=== PATIENT | male | born 1955 | race Caucasian/White ===

== ENCOUNTER 2018-04-13 07:05 | Day surgery (SDC) | payer OTHER ==
[~2018-04-13] VITALS: Ht 193 cm; Wt 111.1 kg
[~2018-04-13 07:05] MED LIST: ADVIL100 MG PO; ALFU10 PO; ASPI81CH PO; COLLAGEN ULTRA PO; LIPOIC ACID25 GM PO; LYCOPENE10 MG PO; MAGNESIUM PO; Omeprazole20 M1 PO; SILD25T PO; [UNRECOGNIZED DRUG - OTHER] PO; [UNRECOGNIZED DRUG - OTHER] PO; [UNRECOGNIZED DRUG - OTHER] PO; [UNRECOGNIZED DRUG - OTHER] PO; [UNRECOGNIZED DRUG - OTHER] PO
== END 2018-04-13 22:50 | disposition home or self-care (01) ==
LOC: ORSCMMR 07:05 → ORD 08:30 → ORSCMMR 22:50
PROVIDERS: Surgery
PROC: 06BY0ZC Excision of Hemorrhoidal Plexus, Open Approach (ICD-10-PCS; principal; 2018-04-13 08:30)
DX: K64.4 Residual hemorrhoidal skin tags (principal); Z87.891 Personal history of nicotine dependence
CPT/HCPCS: J1100; J1885; J2001; J2250; J2405; J3010; J7120

== ENCOUNTER 2021-01-19 07:13 | Day surgery (SDC) | payer OTHER ==
[~2021-01-19] VITALS: Ht 193 cm; Wt 106.6 kg
[~2021-01-19 07:13] MED LIST changes: +ABIRATERONE AC500 MG PO; +Calcium Ascorb500 MG PO; +ERGO400 PO; +IBUP800 PO; +LYRICA75 MG PO; +MYRBETRIQ25 MG PO; +ONDA4 PO; +OXAYDO5 M1 PO; +RAYOS2 MG PO; +XARELTO20 MG PO; -[UNRECOGNIZED DRUG - OTHER] PO
--- NOTE | 2021-01-19 07:33 | NUR ---
Ambulatory in Day Surgery. History, Chart, Medications and Allergies reviewed before start of procedure. Patient States Post-Procedure ride home has been arranged, VAMSHI ASENCIO
[2021-01-19 13:03] LABS: Performing Lab SYMBIODX; Test Name LYMPH NODE
[2021-01-24 11:58] LABS: Result SEE SEPERATE REPORT
[2021-01-29 10:05] LABS: Performing Lab SYMBIODX; Test Name TISSUE BLOCK
== END 2021-01-19 22:42 | disposition home or self-care (01) ==
LOC: ORSCMMR 07:13 → ORD 08:30 → ORSCMMR 22:42
PROVIDERS: Surgery
PROC: 07B20ZX Excision of Left Neck Lymphatic, Open Approach, Diagnostic (ICD-10-PCS; principal; 2021-01-19 08:30)
DX: C61 Malignant neoplasm of prostate (principal); C79.82 Secondary malignant neoplasm of genital organs; R59.0 Localized enlarged lymph nodes; Z86.718 Personal history of other venous thrombosis and embolism; Z85.038 Personal history of other malignant neoplasm of large intestine; Z79.01 Long term (current) use of anticoagulants; Z79.899 Other long term (current) drug therapy; Z87.891 Personal history of nicotine dependence
CPT/HCPCS: 87070; 87075; 87205; 88184; 88185; 88305; 88341; 88342; 88360; J0690; J1100; J1885; J2250; J2405; J2704; J3010; J7120

== ENCOUNTER 2021-02-20 07:32 | Day surgery (SDC) | payer OTHER ==
[2021-02-19 07:37] LABS: Source, Urine Clean Catch
[2021-02-19 08:05] LABS: Appearance, Urine Hazy (Clear); Bilirubin, Urine Neg (Neg); Blood, Urine 5+ (Neg); Color, Urine Brown (P-Yellow); Glucose Qualitative, Urine Neg (Neg); Ketones, Urine 1+ (Neg); Leukocyte Esterase, Urine 1+ (Neg); Nitrite, Urine Neg (Neg); Protein, Urine 3+ (Neg); Urobilinogen, Urine 1+ (Normal)
[2021-02-19 08:06] LABS: BASOPHILS ABSOLUTE AUTO 0.05 K/mm3 (0.00-0.23); BASOPHILS PERCENT AUTO 1 % (0-2); EOSINOPHILS ABSOLUTE AUTO 0.19 K/mm3 (0.00-0.68); EOSINOPHILS PERCENT AUTO 2 % (0-6); Hemoglobin 7.7 g/dL (13.5-17.5); IMMATURE GRAN ABSOLUTE AUTO 0.21 K/mm3 (0.00-0.10); IMMATURE GRAN PERCENT AUTO 2 % (0-1); LYMPHOCYTES ABSOLUTE AUTO 1.68 K/mm3 (0.84-5.20); LYMPHOCYTES PERCENT AUTO 19 % (21-46); MONOCYTES ABSOLUTE AUTO 0.59 K/mm3 (0.16-1.47); MONOCYTES PERCENT AUTO 7 % (4-13); Mean Corpuscular HGB 24.1 pg (26.0-34.0); Mean Corpuscular HGB Conc 29.6 g/dL (31.5-36.5); Mean Corpuscular Volume 81 fL (80-100); Mean Platelet Volume 9.5 fL (9.1-12.4); NEUTROPHILS ABSOLUTE AUTO 6.03 K/mm3 (1.96-9.15); NEUTROPHILS PERCENT AUTO 69 % (41-73); Platelet Count 519 K/mm3 (150-400); RDW Coefficient Variation 16.2 % (11.7-14.2); RDW Standard Deviation 47.8 fL (35.1-46.3); White Blood Cell Count 8.75 K/mm3 (4.00-11.30)
[2021-02-19 08:27] LABS: Alanine Aminotransfer (ALT/SGP 9 U/L (12-78); Albumin, Blood 2.7 g/dL (3.4-5.0); Albumin/Globulin Ratio 0.5 (0.8-1.8); Alk Phos 136 U/L (50-136); Anion Gap 6 mmol/L (6-16); Aspartate Aminotrans (AST/SGOT 15 U/L (12-37); Bilirubin, Total 0.3 mg/dL (0.1-1.0); Blood Urea Nitrogen 20 mg/dL (8-24); Bun/Creatinine Ratio 14.3 (12.0-20.0); CO2, Blood 25 mmol/L (21-32); Calcium, Blood 8.6 mg/dL (8.5-10.1); Chloride, Blood 103 mmol/L (98-108); Glomerular Filtration Rate 54 (60-); Glucose, Blood 108 mg/dL (70-99); Potassium, Blood 4.4 mmol/L (3.5-5.5); Sodium, Blood 134 mmol/L (136-145); Total Protein, Blood 7.7 g/dL (6.4-8.2)
[2021-02-19 08:50] LABS: Bacteria Few /hpf; Red Blood Cells, Urine TNTC /hpf (0-2); Squamous Epithelial Cells Rare /hpf (Few)
[2021-02-19 12:51] LABS: Ferritin, Serum 757 ng/mL (26-388); Iron Serum 36 ug/dL (65-175); Percent Saturation 17.4 % (20.0-50.0); Total Iron Binding Capacity 207 ug/dL (250-450)
[2021-02-20] MEDS ORDERED: PRED5 PO (14:05)
[2021-02-20] MEDS ORDERED: TRAZ50 PO (14:05)
[2021-02-20] MEDS ORDERED: Rapaflo4 MG PO (14:08)
[2021-02-20] MEDS ORDERED: DDAVP0.1 M1 PO (14:10)
== END 2021-02-20 17:15 | disposition home or self-care (01) ==
LOC: ATC 07:32 → EDSTATUS 13:30 → ATC 17:15
PROVIDERS: Internal Medicine Hematology & Oncology
DX: C61 Malignant neoplasm of prostate (principal); C79.51 Secondary malignant neoplasm of bone; C77.5 Secondary and unspecified malignant neoplasm of intrapelvic lymph nodes; C77.2 Secondary and unspecified malignant neoplasm of intra-abdominal lymph nodes; M06.9 Rheumatoid arthritis, unspecified; Z87.891 Personal history of nicotine dependence; Z88.6 Allergy status to analgesic agent; Z92.21 Personal history of antineoplastic chemotherapy; Z92.3 Personal history of irradiation; Z85.038 Personal history of other malignant neoplasm of large intestine; Z87.440 Personal history of urinary (tract) infections; Z79.52 Long term (current) use of systemic steroids
CPT/HCPCS: 36415; 36430; 80053; 81001; 82728; 83540; 83550; 84153; 85025; 86850; 86900; 86901; 86920; 87086; J7050; P9016

== ENCOUNTER 2021-05-01 04:15 | Day surgery (SDC) | payer OTHER ==
[~2021-05-01 04:15] MED LIST changes: +DDAVP0.1 M1 PO; +PRED5 PO; +Rapaflo4 MG PO; +TRAZ50 PO
[2021-05-01 13:04] LABS: Hematocrit 25.3 % (37.0-53.0); Hemoglobin 7.5 g/dL (13.5-17.5); Mean Corpuscular HGB 25.7 pg (26.0-34.0); Mean Corpuscular HGB Conc 29.6 g/dL (31.5-36.5); Mean Corpuscular Volume 87 fL (80-100); Mean Platelet Volume 10.1 fL (9.1-12.4); Platelet Count 340 K/mm3 (150-400); RDW Coefficient Variation 17.9 % (11.7-14.2); RDW Standard Deviation 56.2 fL (35.1-46.3); Red Blood Cell Count 2.92 M/mm3 (4.30-5.90); White Blood Cell Count 9.09 K/mm3 (4.00-11.30)
== END 2021-05-01 12:38 | disposition home or self-care (01) ==
LOC: ATC 04:15
PROVIDERS: Family Medicine
DX: D64.9 Anemia, unspecified (principal); M19.90 Unspecified osteoarthritis, unspecified site; N40.0 Benign prostatic hyperplasia without lower urinary tract symptoms; Z87.891 Personal history of nicotine dependence; Z88.8 Allergy status to other drugs, medicaments and biological substances
CPT/HCPCS: 36415; 36430; 85027; 86850; 86900; 86901; 86923; J7050; P9016

== ENCOUNTER 2021-05-18 01:03 | Day surgery (SDC) | payer OTHER | END 2021-05-18 22:44 | disposition home or self-care (01) | LOC: ATC 01:03 → EDSTATUS 14:00 → ATC 22:44 | DX: C61 Malignant neoplasm of prostate (principal); C79.9 Secondary malignant neoplasm of unspecified site; Z88.4 Allergy status to anesthetic agent; N40.0 Benign prostatic hyperplasia without lower urinary tract symptoms; Z87.891 Personal history of nicotine dependence; Z88.8 Allergy status to other drugs, medicaments and biological substances | CPT/HCPCS: 36415; 86850; 86900; 86901; 86923; J7050; P9016 ==

== ENCOUNTER 2021-05-23 08:52 | Observation (INO) | payer OTHER ==
[~2021-05-23] VITALS: Ht 193 cm; Wt 83.5 kg
[2021-05-23 09:07] LABS: BASOPHILS ABSOLUTE AUTO 0.03 K/mm3 (0.00-0.23); BASOPHILS PERCENT AUTO 0 % (0-2); EOSINOPHILS ABSOLUTE AUTO 0.04 K/mm3 (0.00-0.68); EOSINOPHILS PERCENT AUTO 0 % (0-6); Hematocrit 25.5 % (37.0-53.0); Hemoglobin 7.9 g/dL (13.5-17.5); IMMATURE GRAN ABSOLUTE AUTO 0.34 K/mm3 (0.00-0.10); IMMATURE GRAN PERCENT AUTO 3 % (0-1); LYMPHOCYTES ABSOLUTE AUTO 0.73 K/mm3 (0.84-5.20); LYMPHOCYTES PERCENT AUTO 5 % (21-46); MONOCYTES ABSOLUTE AUTO 0.82 K/mm3 (0.16-1.47); MONOCYTES PERCENT AUTO 6 % (4-13); Mean Corpuscular HGB 26.1 pg (26.0-34.0); Mean Corpuscular Volume 84 fL (80-100); Mean Platelet Volume 9.9 fL (9.1-12.4); NEUTROPHILS ABSOLUTE AUTO 11.66 K/mm3 (1.96-9.15); NEUTROPHILS PERCENT AUTO 86 % (41-73); Platelet Count 291 K/mm3 (150-400); RDW Coefficient Variation 17.2 % (11.7-14.2); RDW Standard Deviation 52.8 fL (35.1-46.3); Red Blood Cell Count 3.03 M/mm3 (4.30-5.90); White Blood Cell Count 13.62 K/mm3 (4.00-11.30)
[2021-05-23 09:31] LABS: Albumin, Blood 2.7 g/dL (3.4-5.0); Albumin/Globulin Ratio 0.6 (0.8-1.8); Bilirubin, Total 0.3 mg/dL (0.1-1.0); Bun/Creatinine Ratio 28.3 (12.0-20.0); Calcium, Blood 7.9 mg/dL (8.5-10.1); Creatinine, Blood 3.85 mg/dL (0.60-1.20); Globulin, Blood 4.6 g/dL (2.2-4.0); Potassium, Blood 5.4 mmol/L (3.5-5.5); Total Protein, Blood 7.3 g/dL (6.4-8.2)
--- NOTE | 2021-05-23 10:25 | NUR ---
PAL CARE - Initial visit note - Met with pt, who was in and out of somnolence and his , Megan at bedside. Pt has PMH of metastatic prostate CA first dx in [address]. [address] Ag/oncology to request hospice this am after 2-3 weeks of N/V progressive weakness at home and realization that she needed help with care. Pt is also currently in acute renal failure per ER DR. I reviewed concerns with renal function and options with pt and . He could participate in the conversation intermittently. Pt and are clear that pt desires DNR status. He would like to be at home for his EOL care and seems to understand that he is nearing EOL at this time. Option of admission for getting N/V and pain under control and attempting gentle rehydradion discussed with pt and Megan and this is what they would like to do. Other than gentle rehydration they do not want other medical intervention outside of standard comfort care orders, which I reviewed with them. Pt would very much like to go home tomorrow with hospice support for him and his . They will need a hospital bed, overbed table and BSC set up in the home. They live in [facility] and do not have an agency preference. I recommend same day Hospoice admit due to increased S/S and 's support/ED needs. I contacted [facility], who cannot admit until Friday. Will call two other agencies serving [place] to check for availability. and pt are aware that his condition may deteriorate while here despite attempt at rehydration and s/s management. I left for admitting Dr to report on my visit and spoke to VALUE ADVISOR and about all of above after visit.
--- NOTE | 2021-05-23 11:11 | NUR ---
Local hospice agency, [facility], has an opening for admit tomorrow and can set DME up in home as long as they receive hospice orders JOSE. This was relayed to pt's ER nurse and she will pass on to that agency is available on for admit to hospice/same day of d/c from hosp.
[2021-05-23] MEDS ORDERED: MORP30ER (11:28)
[2021-05-23] MEDS ORDERED: MORP30ER PO (11:28)
[2021-05-23] MEDS ORDERED: Ritalin10 MG PO (11:36)
[2021-05-23] MEDS ORDERED: SPIRONOLACTONE50 MG PO (11:36)
[2021-05-23] MEDS ORDERED: REMERON15 M4 PO (11:36)
[2021-05-23] MEDS ORDERED: MS CONTIN PO (11:37)
[2021-05-23] MEDS ORDERED: OXYC5 PO (11:38)
[2021-05-23] MEDS ORDERED: MOVANTIK PO (11:38)
[2021-05-23] MEDS ORDERED: PREGABALIN PO (11:39)
[2021-05-23] MEDS ORDERED: TRAZ100 PO (11:39)
[2021-05-23] MEDS ORDERED: IBU800 M1 PO (11:40)
[2021-05-23] MEDS ORDERED: BUME2 PO (11:41)
[2021-05-23] MEDS ORDERED: TAMSULOSIN HCL0.4 M1 PO (11:41)
[2021-05-23] MEDS ORDERED: SENOKOT8.6 MG PO (11:41)
--- NOTE | 2021-05-23 12:13 | NUR ---
CASE CONF NOTE - Spoke with admitting provider & CM to report on my visit. [facility] hospice was faxed pt's face sheet and referral note. CM will f/u on obtaining orders to fax to them also. I confirmed that fax was received by [facility] and they will be in contact with pt's for set up of hospital bed and other DME as indicated. Spoke with Paint Preparer to request a visit to and pt later today.
--- NOTE | 2021-05-23 14:12 | NUR ---
Upon receiving a referral from Palliative Care RN Maria A Barclay, I visit patient in the ER. Patient is completely asleep and snoring loudly. I talk with patient's spouse, Megan who is very tearful and also pleasant with a deep inner strength. She explains that her strength and peace comes from her Yazdanism cyrus. She tells me the story of patient's rice with cancer and how recent weeks have been overwhelming. I normalize her experience, reinforce helpful attitudes and practices and provide therapeuitc listening and prayer. Megan responds well to the calming presence and prayer and shows signs of reduced stress. I will continue to remain available to patient and family to assist with spiritual/emotional needs.
--- NOTE | 2021-05-23 14:17 | NUR ---
PT ARRIVED TO THE MEDICAL FLOOR FROM THEN ER VIA GURNEY. PT IS ALERT SLOW TO RESPOND APPEARS TO BE DROWSY, IS AT THE BEDSIDE. PT AND FAMILY ORIENTED TO THE ROOM LAYOUT AND CALL SYSTEM. CALL LIGHT IN REACH
--- NOTE | 2021-05-23 15:38 | NUR ---
PAL CARE COMFORT CARE VISIT TO RM 301 upon transfer to medical floor. Pt remains drowsy and falls asleep easily mid sentence. RN in process of admitting to the floor. verbalized concerns for pt's weeks long constipation. VO obtained for bowel care and fleets enema prn if bowel medications are ineffective before d/c home with hospice planned tomorrow. Case conferenced with admitting [facility] again and CM dept to update on plan of care. Pt appears more restful than my earlier visit in ER and I do not see the nonverbal indicators of nausea and distress noted this am. [facility] food/beverage cart ordered for and other family visitors. Plan PC visit in am and coordination with N[facility] for smooth transition to home with hospice.
--- NOTE | 2021-05-23 17:36 | NUR ---
PT ARRIVED TO THE MEDICAL FLOOR APPEARS TO BE COMFORTABLE, DROWSY, IS AT THE BEDSIDE
--- NOTE | 2021-05-23 17:38 | NUR ---
PT IS ALERT OPENS EYES WITH VERBAL STIMULI. THE PT HAS BEEN VERY DROWSY SINCE ARRIVING TO THE MEDICAL FLOOR. THE PT WAS GIVEN A SUPPOSITORY FOR BOWEL CARE. THE PTS ATTENDS CHANGED AND BLOOD CLOTS WERE NOTICED IN THE ATTENDS, THE PT WAS UNABLE TO PEE AT THE TIME. A BLADDER SCAN WAS DONE WICH ONLY SHOWED 180 CC IN. CALL LIGHT IN REACH, WILL CONTINUE TO MONITOR AND ASSESS FOR CHANGES. PT APPEARS TO BE COMFORTABLE AT THIS TIME
--- NOTE | 2021-05-24 05:12 | NUR ---
SHIFT SUMMARY: PT IS MINIMALLY RESPONSIVE, EYES OPEN AT TIMES. PT HAVING SECRETIONS, SUCTION SET UP AT BEDSIDE AND PERFORMED PRN. PT MEDICATED WITH ROXINOL ON ONE OCCASION FOR PAIN. PT'S STATUS DECLINING THROUGHOUT THE NIGHT, , VAMSHI, CALLED @ 0500 AND INFORMED OF THE SITUATION, STATED SHE WILL COME IN. INCONTINENCE WITH HEMATURIA, CHANGED AND CLEANED NEEDED. WILL CONTINUE TO MONITOR.
--- NOTE | 2021-05-24 05:26 | NUR ---
SUCTION AT BEDSIDE PERFORMED NEEDED.
== END 2021-05-24 05:15 ==
LOC: ER 08:52 → MEDS 08:53
PROVIDERS: Emergency Medicine; ADMIT Internal Medicine
DX: Z51.5 Encounter for palliative care (principal); C61 Malignant neoplasm of prostate; C79.9 Secondary malignant neoplasm of unspecified site; R11.2 Nausea with vomiting, unspecified; R53.1 Weakness; E86.0 Dehydration; Z66 Do not resuscitate; N17.9 Acute kidney failure, unspecified; M06.9 Rheumatoid arthritis, unspecified; N40.0 Benign prostatic hyperplasia without lower urinary tract symptoms; Z88.4 Allergy status to anesthetic agent; Z88.8 Allergy status to other drugs, medicaments and biological substances; Z79.52 Long term (current) use of systemic steroids; Z79.01 Long term (current) use of anticoagulants; Z87.891 Personal history of nicotine dependence; Z86.718 Personal history of other venous thrombosis and embolism
CPT/HCPCS: 74018; 80053; 83690; 85025; 93005; 93010; 96374; 99285-25; A9270; G0378; J2405; J7030